=== PATIENT | female | born 1995 | race Caucasian/White ===

== ENCOUNTER 2025-06-05 14:01 | Inpatient (IN) ==
[2025-06-05] MEDS: SODIUM CHLORIDE 0.9% 1,000 ML IV STA (14:34)
--- NOTE | 2025-06-05 14:35 | Emergency Department Note ---
Impression & Plan Tachycardia, Elevated troponin, Hypokalemia, Hyperglycemia ED Provider Note NAME: KYLE DE LA CRUZ AGE: 29 SEX: F : 1995 ARRIVES VIA: Ambulance INFORMANT: Patient ED PROVIDER(S): Santi White MD CHIEF COMPLAINT: Palpitations, referred. 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 Patient denies having any episodes of similar symptoms in the past. She reports over the past several weeks she has had moments where she would have a mild sharp pain in the center of her chest and lower chest but would last 10 seconds at most. She denies any chest pain at this time. She denies any recent illness including denies fevers, chills, cough, congestion, GI or symptoms. She denies any family history of sudden , DVT/PE. On evaluation the patient no acute distress, afebrile with hide in the 120s-130s and a regular rhythm and vital signs otherwise stable. She appears clinically dry. She exhibits no neurologic deficits. EKG without overt acute ischemia. CXR negative for acute cardiopulmonary process per my personal preliminary review/interpretation. WBC 11.4 K with neutrophilia but no left shift, nonspecific. H/H and platelets within normal limits. Chemistry without metabolic acidosis. BUN/creatinine 24 consistent with patient's clinically dry appearance. Potassium 3.1 and magnesium 1.9 with repletion provided. Glucose was 242 however hemoglobin A1c is within normal limits. LFTs are unremarkable. Initial high-sensitivity troponin 42 with delta 2-hour repeat rising to 147. Lyme screen was negative. UA without evidence of infection. CTA of the chest was performed was negative for PE or acute aortic pathology. No acute cardiopulmonary process otherwise. No pericardial effusion by CT. Limited bedside cardiac ultrasound also was negative for pericardial effusion. Upon evaluation patient did report feeling some improvement after heart Federation electrolyte repletion though she did acknowledge that when she paid attention she felt as if her heart rate increased. Findings were reviewed and the patient does agree with plan for admission for further management. Unclear definitive etiology to patient's symptoms and elevated troponin at this time though certainly may be possible that the patient had experienced a more rapid and persistent SVT prior to arriving to the emergency department. Case was discussed with JAMIL Johnston hospitalist, who will evaluate the patient for admission. Further management per admitting team. Triage Nursing notes reviewed and agree them. Prior/external medical records reviewed Vital Signs: reviewed Differential diagnosis: Premature contractions, electrolyte abnormality, cardiac dysrhythmia, thyroid dysfunction, pulmonary embolism, infection, gastrointestinal, as well as other pathologies. ER treatment provided: See below. Diagnostics interpreted by me: ECG: Sinus tachycardia, 126 bpm, no ectopy, incomplete right bundle branch block, no overt ST elevation or depression, QTc 437, QRS 96. No Brugada, Cardiac Monitoring: An order for continuous cardiac monitoring was placed and demonstrated sinus tachycardia, 126 bpm, no ectopy. Laboratory studies: See below Imaging studies: See below Consultation(s): JAMIL Johnston hospitalist. HPI: Per MDM. ROS: See above HPI for pertinent positives & negatives. A total of 10 systems reviewed and were otherwise negative. VITALS:See Below PHYSICAL EXAMINATION: GENERAL: Awake, alert, in no distress HENT: Normocephalic, atraumatic. Oropharynx with dry mucous membranes and otherwise unremarkable. EYES: Normal conjunctiva. Sclera non-icteric. NECK: Supple. No nuchal rigidity. FROM. No JVD. RESPIRATORY: Clear to auscultation. CARDIAC: Tachycardic rate, normal rhythm. Extremities warm and well perfused. Pulses equal. ABDOMEN: Soft, non-distended. No tenderness to palpation. No rebound or guarding. No masses. MUSCULOSKELETAL: Chest examination reveals no tenderness. The back is symmetrical on inspection without obvious abnormality. There is no CVA tenderness to palpation. No joint edema. LOWER EXTREMITIES: Calves are equal size bilaterally and non-tender. No edema. No discoloration. NEURO: Normal sensorium. No sensory or motor deficits noted. SKIN: No rash or jaundice noted. Santi White MD Past Med/Surg History Problem List (Updated 06/06/25 @ 05:05 by Santi White MD) Hyperglycemia (Acute) Hypophosphatemia Hypokalemia (Acute) Elevated troponin (Acute) Tachycardia (Acute) Social History Smoking Status: Never smoker Hx Alcohol Use: No Hx Substance Use: No Preferred Language: Wolof Beliefs That Will Affect Care: None Current Living Situation: Alone Feels Safe at Home: Yes Assistive Devices: None Allergies Allergies Allergy/AdvReac Type Severity Reaction Status Date / Time No Known Allergies Allergy Unverified 06/05/25 23:19 Home Meds Home Medications Medication Instructions Recorded Confirmed Women's Multivitamin 1 tab PO DAILY 06/05/25 06/05/25 norethindrone 1 mg-ethinyl 1 tab PO DAILY 06/05/25 06/05/25 estradiol 10 mcg (24)-iron 10 mcg(2) tablet (Lo Loestrin Fe) Results & Data (ED) Vital Signs Vital Signs - 24 hr 06/05/25 13:55 06/05/25 14:20 06/05/25 14:21 Temperature 36.8 C Temperature Source Oral Pulse Rate 128 H 133 H Pulse Rate from SpO2 Sensor Pulse Rhythm Regular Pulse Strength Normal Respiratory Rate 22 Respiratory Effort / Characteristics Non-Labored Spontaneous Respiratory Depth Normal Blood Pressure 128/79 Blood Pressure Mean 95 Blood Pressure Position Semi-fowlers Pulse Oximetry 100 100 Oxygen Delivery Method Room Air Room Air Sepsis Recent Fever Within 48 Hours No Sepsis New/Unexplained Change in Mental Status No Sepsis Action Taken by Nursing Physician Notified 06/05/25 14:21 06/05/25 14:24 06/05/25 14:27 Temperature Temperature Source Pulse Rate 129 H 126 H 126 H Pulse Rate from SpO2 Sensor 123 H 127 H Pulse Rhythm Pulse Strength Respiratory Rate 22 18 28 H Respiratory Effort / Characteristics Respiratory Depth Blood Pressure Blood Pressure Mean Blood Pressure Position Pulse Oximetry 100 100 100 Oxygen Delivery Method Room Air Sepsis Recent Fever Within 48 Hours Sepsis New/Unexplained Change in Mental Status Sepsis Action Taken by Nursing 06/05/25 14:30 06/05/25 14:57 06/05/25 15:00 Temperature Temperature Source Pulse Rate 124 H 124 H Pulse Rate from SpO2 Sensor 125 H 126 H Pulse Rhythm Pulse Strength Respiratory Rate 15 20 Respiratory Effort / Characteristics Respiratory Depth Blood Pressure 139/83 139/83 Blood Pressure Mean 94 101 Blood Pressure Position Pulse Oximetry 100 100 Oxygen Delivery Method Sepsis Recent Fever Within 48 Hours Sepsis New/Unexplained Change in Mental Status Sepsis Action Taken by Nursing 06/05/25 15:00 06/05/25 15:00 06/05/25 15:12 Temperature Temperature Source Pulse Rate 122 H Pulse Rate from SpO2 Sensor 122 H Pulse Rhythm Pulse Strength Respiratory Rate 15 Respiratory Effort / Characteristics Respiratory Depth Blood Pressure 150/73 H 150/73 H Blood Pressure Mean 101 101 Blood Pressure Position Pulse Oximetry 100 Oxygen Delivery Method Sepsis Recent Fever Within 48 Hours Sepsis New/Unexplained Change in Mental Status Sepsis Action Taken by Nursing 06/05/25 15:21 06/05/25 15:30 06/05/25 15:42 Temperature Temperature Source Pulse Rate 128 H 126 H Pulse Rate from SpO2 Sensor 130 H 125 H Pulse Rhythm Pulse Strength Respiratory Rate 15 22 Respiratory Effort / Characteristics Respiratory Depth Blood Pressure 128/79 Blood Pressure Mean 94 Blood Pressure Position Pulse Oximetry 100 100 Oxygen Delivery Method Sepsis Recent Fever Within 48 Hours Sepsis New/Unexplained Change in Mental Status Sepsis Action Taken by Nursing 06/05/25 15:48 06/05/25 16:00 06/05/25 16:00 Temperature Temperature Source Pulse Rate 125 H Pulse Rate from SpO2 Sensor 123 H Pulse Rhythm Pulse Strength Respiratory Rate 19 Respiratory Effort / Characteristics Respiratory Depth Blood Pressure 135/81 135/81 Blood Pressure Mean 95 95 Blood Pressure Position Pulse Oximetry 100 Oxygen Delivery Method Sepsis Recent Fever Within 48 Hours Sepsis New/Unexplained Change in Mental Status Sepsis Action Taken by Nursing 06/05/25 16:03 06/05/25 16:27 06/05/25 16:51 Temperature Temperature Source Pulse Rate 125 H 119 H 117 H Pulse Rate from SpO2 Sensor 125 H 120 H 116 H Pulse Rhythm Pulse Strength Respiratory Rate 19 21 13 Respiratory Effort / Characteristics Respiratory Depth Blood Pressure Blood Pressure Mean Blood Pressure Position Pulse Oximetry 100 100 100 Oxygen Delivery Method Sepsis Recent Fever Within 48 Hours Sepsis New/Unexplained Change in Mental Status Sepsis Action Taken by Nursing 06/05/25 16:57 06/05/25 17:00 06/05/25 17:00 Temperature Temperature Source Pulse Rate 119 H Pulse Rate from SpO2 Sensor 123 H Pulse Rhythm Pulse Strength Respiratory Rate 20 Respiratory Effort / Characteristics Respiratory Depth Blood Pressure 127/76 127/76 Blood Pressure Mean 91 91 Blood Pressure Position Pulse Oximetry 98 Oxygen Delivery Method Sepsis Recent Fever Within 48 Hours Sepsis New/Unexplained Change in Mental Status Sepsis Action Taken by Nursing 06/05/25 17:30 06/05/25 17:30 06/05/25 17:30 Temperature Temperature Source Pulse Rate Pulse Rate from SpO2 Sensor Pulse Rhythm Pulse Strength Respiratory Rate Respiratory Effort / Characteristics Respiratory Depth Blood Pressure 119/76 119/76 119/76 Blood Pressure Mean 84 84 84 Blood Pressure Position Pulse Oximetry Oxygen Delivery Method Sepsis Recent Fever Within 48 Hours Sepsis New/Unexplained Change in Mental Status Sepsis Action Taken by Nursing 06/05/25 17:30 06/05/25 17:36 06/05/25 17:49 Temperature Temperature Source Pulse Rate 119 H 121 H Pulse Rate from SpO2 Sensor 117 H 121 H Pulse Rhythm Pulse Strength Respiratory Rate 14 19 Respiratory Effort / Characteristics Respiratory Depth Blood Pressure 128/82 Blood Pressure Mean 94 Blood Pressure Position Pulse Oximetry 99 99 Oxygen Delivery Method Sepsis Recent Fever Within 48 Hours Sepsis New/Unexplained Change in Mental Status Sepsis Action Taken by Nursing 06/05/25 17:51 06/05/25 17:54 06/05/25 18:00 Temperature Temperature Source Pulse Rate 117 H 122 H Pulse Rate from SpO2 Sensor 116 H 120 H Pulse Rhythm Pulse Strength Respiratory Rate 16 20 Respiratory Effort / Characteristics Respiratory Depth Blood Pressure 126/76 Blood Pressure Mean 93 Blood Pressure Position Pulse Oximetry 98 99 Oxygen Delivery Method Sepsis Recent Fever Within 48 Hours Sepsis New/Unexplained Change in Mental Status Sepsis Action Taken by Nursing 06/05/25 18:00 06/05/25 18:03 06/05/25 18:15 Temperature Temperature Source Pulse Rate 115 H 116 H Pulse Rate from SpO2 Sensor 115 H 116 H Pulse Rhythm Pulse Strength Respiratory Rate 21 18 Respiratory Effort / Characteristics Respiratory Depth Blood Pressure 126/76 Blood Pressure Mean 93 Blood Pressure Position Pulse Oximetry 99 99 Oxygen Delivery Method Sepsis Recent Fever Within 48 Hours Sepsis New/Unexplained Change in Mental Status Sepsis Action Taken by Nursing 06/05/25 18:29 06/05/25 18:51 06/05/25 19:09 Temperature Temperature Source Pulse Rate 117 H 105 H 103 H Pulse Rate from SpO2 Sensor 104 H 104 H Pulse Rhythm Pulse Strength Respiratory Rate 21 25 H Respiratory Effort / Characteristics Respiratory Depth Blood Pressure Blood Pressure Mean Blood Pressure Position Pulse Oximetry 99 99 Oxygen Delivery Method Sepsis Recent Fever Within 48 Hours Sepsis New/Unexplained Change in Mental Status Sepsis Action Taken by Nursing 06/05/25 19:12 06/05/25 19:21 Temperature Temperature Source Pulse Rate 106 H 109 H Pulse Rate from SpO2 Sensor 109 H 109 H Pulse Rhythm Pulse Strength Respiratory Rate 21 21 Respiratory Effort / Characteristics Respiratory Depth Blood Pressure Blood Pressure Mean Blood Pressure Position Pulse Oximetry 99 98 Oxygen Delivery Method Sepsis Recent Fever Within 48 Hours Sepsis New/Unexplained Change in Mental Status Sepsis Action Taken by Nursing Laboratory Data Attestation: I reviewed the patient's lab results. 06/05/25 14:20 06/05/25 14:20 Lab Results 06/05/25 06/05/25 06/05/25 Range/Units 14:20 14:20 17:08 WBC 11.49 H (4.8-10.8) K/ul RBC 4.28 (4.20-5.40) M/uL Hgb 12.8 (12.0-16.0) g/dl Hct 37.2 (37.0-47.0) % MCV 86.9 (80.0-100.0) fL MCH 29.9 (25.0-34.0) pg MCHC 34.4 (32.0-36.0) g/dL RDW Std Deviation 39.9 (36.4-46.3) fL RDW Coeff of Pavel 12.5 (11.5-14.5) % Plt Count 244 (130-400) K/uL MPV 11.1 (9.4-12.4) fL Immature Gran % (Auto) 0.4 % Neut % (Auto) 79.3 % Lymph % (Auto) 11.8 % [place] % (Auto) 6.2 % Eos % (Auto) 1.9 % Baso % (Auto) 0.4 % Neut # (Auto) 9.10 H (1.40-6.50) K/uL Lymph # (Auto) 1.36 (1.20-3.40) K/uL [place] # (Auto) 0.71 H (0.11-0.59) K/uL Eos # (Auto) 0.22 (0.00-0.50) K/uL Baso # (Auto) 0.05 (0.00-0.20) K/uL Immature Gran # (Auto) 0.05 (0.01-0.20) K/uL PT 10.9 (9.0-12.0) Seconds INR 1.0 (0.9-1.1) D-Dimer 260 (0-500) ug/L FEU Sodium 132 L (136-145) mmol/L Potassium 3.1 L (3.5-5.1) mmol/L Chloride 101 (98-107) mmol/L Carbon Dioxide 22 (21-32) mmol/L Anion Gap 9 (3-11) BUN 19 (6-23) mg/dl Creatinine 0.79 (0.6-1.2) mg/dl Est Cr Clr Drug Dosing 84.6 ml/min eGFR 105.08 BUN/Creatinine Ratio 24.1 H (10-20) Glucose 242 H (70-99(Fasting)) mg/dl Estimat Average Glucose 97 mg/dl Hemoglobin A1c 5.0 (4.5-5.6) % Calcium 8.9 (8.6-10.3) mg/dl Phosphorus 2.3 L (2.5-4.9) mg/dl Magnesium 1.9 (1.7-2.4) mg/dl Total Bilirubin 0.5 (0.2-1.0) mg/dl AST 15 (13-39) U/L ALT 15 (7-52) U/L Alkaline Phosphatase 53 (34-104) U/L Troponin I High Sens 42.4 H 147.8 H* D (0-14) pg/ml Total Protein 7.8 (6.0-8.3) gm/dl Albumin 4.2 (3.4-5.0) gm/dl Globulin 3.6 (2.5-4.0) gm/dl Albumin/Globulin Ratio 1.2 (0.9-2) Lipase 15 (11-82) U/L Procalcitonin < 0.02 Cancelled (0-0.5) ng/ml TSH 1.991 (0.300-4.500) uIu/ml HCG, Qual Negative (Negative) Urine Color Urine Appearance (Clear) Urine pH (4.5-7.5) Ur Specific [place] (1.000-1.030) Urine Protein (Negative) Urine Glucose (UA) (Negative) Urine Ketones (Negative) Urine Blood (Negative) Urine Nitrite (Negative) Urine Bilirubin (Negative) Urine Urobilinogen (Negative) Ur Leukocyte Esterase (Negative) Urine WBC (Auto) (0-5) /hpf Urine RBC (Auto) (0-2) /hpf U Hyaline Cast (Auto) (0-2) /lpf U Epithel Cells (Auto) (0-2) /hpf Urine Bacteria (Auto) (None Seen) Urine Comment Lyme Disease Screen Negative (Negative) 06/05/25 Range/Units 17:45 WBC (4.8-10.8) K/ul RBC (4.20-5.40) M/uL Hgb (12.0-16.0) g/dl Hct (37.0-47.0) % MCV (80.0-100.0) fL MCH (25.0-34.0) pg MCHC (32.0-36.0) g/dL RDW Std Deviation (36.4-46.3) fL RDW Coeff of Pavel (11.5-14.5) % Plt Count (130-400) K/uL MPV (9.4-12.4) fL Immature Gran % (Auto) % Neut % (Auto) % Lymph % (Auto) % [place] % (Auto) % Eos % (Auto) % Baso % (Auto) % Neut # (Auto) (1.40-6.50) K/uL Lymph # (Auto) (1.20-3.40) K/uL [place] # (Auto) (0.11-0.59) K/uL Eos # (Auto) (0.00-0.50) K/uL Baso # (Auto) (0.00-0.20) K/uL Immature Gran # (Auto) (0.01-0.20) K/uL PT (9.0-12.0) Seconds INR (0.9-1.1) D-Dimer (0-500) ug/L FEU Sodium (136-145) mmol/L Potassium (3.5-5.1) mmol/L Chloride (98-107) mmol/L Carbon Dioxide (21-32) mmol/L Anion Gap (3-11) BUN (6-23) mg/dl Creatinine (0.6-1.2) mg/dl Est Cr Clr Drug Dosing ml/min eGFR BUN/Creatinine Ratio (10-20) Glucose (70-99(Fasting)) mg/dl Estimat Average Glucose mg/dl Hemoglobin A1c (4.5-5.6) % Calcium (8.6-10.3) mg/dl Phosphorus (2.5-4.9) mg/dl Magnesium (1.7-2.4) mg/dl Total Bilirubin (0.2-1.0) mg/dl AST (13-39) U/L ALT (7-52) U/L Alkaline Phosphatase (34-104) U/L Troponin I High Sens (0-14) pg/ml Total Protein (6.0-8.3) gm/dl Albumin (3.4-5.0) gm/dl Globulin (2.5-4.0) gm/dl Albumin/Globulin Ratio (0.9-2) Lipase (11-82) U/L Procalcitonin (0-0.5) ng/ml TSH (0.300-4.500) uIu/ml HCG, Qual (Negative) Urine Color Colorless Urine Appearance Clear (Clear) Urine pH 6.0 (4.5-7.5) Ur Specific [place] <= 1.005 (1.000-1.030) Urine Protein Negative (Negative) Urine Glucose (UA) Negative (Negative) Urine Ketones Negative (Negative) Urine Blood Trace-intact H (Negative) Urine Nitrite Negative (Negative) Urine Bilirubin Negative (Negative) Urine Urobilinogen Negative (Negative) Ur Leukocyte Esterase Negative (Negative) Urine WBC (Auto) 0-5 (0-5) /hpf Urine RBC (Auto) 0-2 (0-2) /hpf U Hyaline Cast (Auto) 0-2 (0-2) /lpf U Epithel Cells (Auto) 0-2 (0-2) /hpf Urine Bacteria (Auto) None Seen (None Seen) Urine Comment Lyme Disease Screen (Negative) Administered Medications Enoxaparin Sodium (Enoxaparin Inj 40 Mg/0.4 Ml Syr) 40 mg SQ HS HOWIE Stop: 07/05/25 22:59 Last Admin: 06/05/25 23:59 Dose: Not Given Documented By: ZION Hydroxyzine HCl (Hydroxyzine Hcl 25 Mg Tab) 25 mg PO Q8H PRN PRN Reason: Anxiety Stop: 07/05/25 19:56 Last Admin: 06/05/25 23:47 Dose: 25 mg Documented By: ZION Melatonin (Melatonin 3 Mg Tab) 3 mg PO HS PRN PRN Reason: Sleep Stop: 07/05/25 22:46 Last Admin: 06/05/25 23:47 Dose: 3 mg Documented By: ZION Discontinued Medications Sodium Chloride (Nss) 1,000 mls @ 999 mls/hr IV .Q1H1M STA Stop: 06/05/25 15:21 Last Infusion: 06/05/25 18:03 Dose: Infused Documented By: Admin: 06/05/25 14:34 Dose: 999 mls/hr Documented By: TDM Sodium Chloride (Nss) 1,000 mls @ 999 mls/hr IV .Q1H1M ONE Stop: 06/05/25 15:21 Last Admin: 06/05/25 14:42 Dose: Not Given Documented By: TDM Magnesium Sulfate/Dextrose (Magnesium Sulfate / D5w) 1 gm in 100 mls @ 100 mls/hr IV NOW STA Stop: 06/05/25 16:28 Last Infusion: 06/05/25 18:03 Dose: Infused Documented By: Admin: 06/05/25 15:43 Dose: 100 mls/hr Documented By: JACINTA Potassium Chloride (K Ariel / Wtr) 10 meq in 100 mls @ 100 mls/hr IV ONE ONE Stop: 06/05/25 16:27 Last Infusion: 06/05/25 18:03 Dose: Infused Documented By: Admin: 06/05/25 15:44 Dose: 100 mls/hr Documented By: JACINTA Sodium Chloride (Nss) 1,000 mls @ 999 mls/hr IV .Q1H1M ONE Stop: 06/05/25 18:40 Last Infusion: 06/05/25 19:51 Dose: Infused Documented By: Admin: 06/05/25 17:43 Dose: 999 mls/hr Documented By: JACINTA Potassium Phosphate 6 mmol/ (Sodium Chloride) 102 mls @ 88 mls/hr IV ONE ONE Stop: 06/05/25 21:24 Last Infusion: 06/05/25 23:21 Dose: Infused Documented By: [facility] Admin: 06/05/25 22:11 Dose: 88 mls/hr Documented By: NJIan Ioversol (Optiray 320 125ml) 118 ml IV ONCE ONE Stop: 06/05/25 16:37 Last Admin: 06/05/25 16:36 Dose: 118 ml Documented By: Imaging Data Radiologist's Impression: Chest X-Ray 06/05/25 14:21 XR chest 1V portable CLINICAL HISTORY: Chest pain, nonspecific COMPARISON STUDY: None FINDINGS: Heart size and pulmonary vasculature are normal. Lungs are mildly hyperexpanded. No consolidation or pleural effusion. No pneumothorax. IMPRESSION: No acute findings. ACT 112: Negative or not required by law. Electronically signed by: Jack Howard M.D. 06/05/2025 2:52 PM Chest X-Ray 06/05/25 14:21 XR chest 1V portable CLINICAL HISTORY: Chest pain, nonspecific COMPARISON STUDY: None FINDINGS: Heart size and pulmonary vasculature are normal. Lungs are mildly hyperexpanded. No consolidation or pleural effusion. No pneumothorax. IMPRESSION: No acute findings. ACT 112: Negative or not required by law. Electronically signed by: Jack Howard M.D. 06/05/2025 2:52 PM Chest CTA 06/05/25 15:28 CT pulmonary angiogram with IV contrast History: Chest pain COMPARISON: None TECHNIQUE: CT angiography of the chest was performed without IV contrast followed by IV contrast, including 3D post processing CTA image reconstruction. Dose reduction techniques were achieved by using automatic exposure control and/or adjustment of mA and/or kV according to patient size and/or use of iterative reconstruction technique. FINDINGS: Diagnostic quality: Adequate There is no evidence for pulmonary embolism. The heart is not enlarged. There is no pericardial effusion. There are no abnormally enlarged hilar or mediastinal lymph nodes. The central tracheobronchial tree is clear. The lungs are clear. There is no pleural effusion. Limited visualized upper abdomen. No destructive osseous changes are seen. IMPRESSION: No evidence for pulmonary embolism. Electronically signed by Chago Li 06-05-2025 4:55 PM Discharge Plan Visit Data Chief Complaint: Arrhythmia/Palpitations Stated Complaint: CARDIAC ASSESMENT ED Provider: Santi White Discharge Problem: Tachycardia, Elevated troponin, Hypokalemia, Hyperglycemia Patient Disposition: Admitted As Inpatient Condition: Fair Discharge Instructions Interventions: ED Discharge Assessment Last Done: 06/05/25 22:25
[2025-06-05] MEDS: SODIUM CHLORIDE 0.9% 1,000 ML IV ONE ×2 (14:42→17:43)
[2025-06-05 14:48] LABS: Hematocrit (blood only) 37.2 % (37.0-47.0); Hemoglobin 12.8 g/dl (12.0-16.0); Immature Granulocytes # (auto) 0.05 K/uL (0.01-0.20); Immature Granulocytes % (auto) 0.4 %; Mean Corpuscular Hemoglobin 29.9 pg (25.0-34.0); Mean Corpuscular Volume 86.9 fL (80.0-100.0); Platelet Count 244 K/uL (130-400); RDW Standard Deviation 39.9 fL (36.4-46.3); Red Blood Count 4.28 M/uL (4.20-5.40); White Blood Count 11.49 K/ul (4.8-10.8)
--- NOTE | 2025-06-05 14:54 | XRay Report ---
XR chest 1V portable CLINICAL HISTORY: Chest pain, nonspecific COMPARISON STUDY: None FINDINGS: Heart size and pulmonary vasculature are normal. Lungs are mildly hyperexpanded. No consoli dation or pleural effusion. No pneumothorax. IMPRESSION: No acute findings. ACT 112: Negative or not required by law. Electronically signed by: Jack Howard M.D. 06/05/2025 2:52 PM
[2025-06-05 15:07] LABS: Alanine Aminotransferase 15.0 U/L (7-52); Albumin Globulin Ratio 1.2 (0.9-2); Alkaline Phosphatase 53.0 U/L (34-104); Anion Gap 9.0 (3-11); Bilirubin,Total 0.5 mg/dl (0.2-1.0); Blood Urea Nitrogen 19.0 mg/dl (6-23); Calcium 8.9 mg/dl (8.6-10.3); Carbon Dioxide 22.0 mmol/L (21-32); Chloride 101.0 mmol/L (98-107); Creatinine Clr Calc Pharmacy 84.6 ml/min; Globulin 3.6 gm/dl (2.5-4.0); Glucose 242.0 mg/dl (70-99(Fasting)); Lipase 15.0 U/L (11-82); Magnesium 1.9 mg/dl (1.7-2.4); Potassium 3.1 mmol/L (3.5-5.1); Sodium 132.0 mmol/L (136-145); Total Protein 7.8 gm/dl (6.0-8.3)
[2025-06-05 15:11] LABS: Pregnancy Test, Serum Negative (Negative)
[2025-06-05 15:22] LABS: Thyroid Stimulating Hormone 1.991 uIu/ml (0.300-4.500)
[2025-06-05 15:36] LABS: INR 1.0 (0.9-1.1); Prothrombin Time 10.9 Seconds (9.0-12.0)
[2025-06-05] MEDS: MAGNESIUM SULFATE / D5W 1 GM/100 ML BAG IV STA (15:43)
[2025-06-05] MEDS: POTASSIUM CHLORIDE / WTR 10 MEQ/100 ML PLCT IV ONE (15:44)
[2025-06-05] MEDS: OPTIRAY 320 125ml IV ONE (16:36)
--- NOTE | 2025-06-05 16:55 | CT Scan Report ---
CT pulmonary angiogram with IV contrast History: Chest pain COMPARISON: None TECHNIQUE: CT angiography of the chest was performed without IV contrast followed by IV contrast, including 3D post processing CTA image reconstruction. Dose reduction techniques were achieved by using automatic exposure control and/or adjustment of mA and/or kV according to patient size and/or use of iterative reconstruction technique. FINDINGS: Diagnostic quality: Adequate There is no evidence for pulmonary embolism. The heart is not enlarged. There is no pericardial effusion. There are no abnormally enlarged hilar or mediastinal lymph nodes. The central tracheobronchial tree is clear. The lungs are clear. There is no pleural effusion. Limited visualized upper abdomen. No destructive osseous changes are seen. IMPRESSION: No evidence for pulmonary embolism. Electronically signed by Chago Li 06-05-2025 4:55 PM
[2025-06-05 18:06] LABS: Appearance Urine Clear (Clear); Glucose Urine UA Negative (Negative)
[2025-06-05 18:11] LABS: Bacteria Urine Automated None Seen (None Seen); Cast Urine Automated 0-2 /lpf (0-2); Epithelial Cell Urine Auto 0-2 /hpf (0-2); RBC Urine Automated 0-2 /hpf (0-2); WBC Urine Automated 0-5 /hpf (0-5)
[2025-06-05 19:03] LABS: Hemoglobin A1C 5.0 % (4.5-5.6)
[2025-06-05 19:20] LABS: Procalcitonin < 0.02 ng/ml (0-0.5)
--- NOTE | 2025-06-05 19:31 | History & Physical Report ---
Date of Service June 05, 2025 Assessment & Plan (1) Tachycardia: (2) Elevated troponin: (3) Hypokalemia: (4) Hypophosphatemia: (5) Hyperglycemia: Plan 29-year-old female no significant PMHx presenting for onset of feeling her heart racing and palpitations the day of arrival. Workup in ED concerning for few electrolyte abnormalities as well as elevated troponin with significant rise on repeat. Imaging studies (CXR and chest CTA) negative. EKG without ischemic changes. Admission required for elevated troponin. #Tachycardia/Elevated troponin Presenting with onset of her "heart racing" at ~ 130 bpm and palpitations. On control. No recent illness. Unclear etiology at this time; not anemic, no clear infection at admission, no dehydration, denies illicit drugs, negative PE. Will complete cardiac workup. Does appear somewhat anxious during visit and heart rate increased when medical personnel initially entered the room. - CBC leukocytosis 11.49, stable H&H; D-dimer 260 - CBC am - Troponin 42.4, 147.8 on repeat - trend - Lyme negative - EKG read as sinus tachycardia with occasional ventricular paced complexes at 74 bpm -- pending repeat - CXR WNL; chest CTA negative for PE - Echo pending - Hydroxyzine q8h prn for anxiety - Consider cardiology consult #Hypokalemia Asx; Received KCl 10 mEq IV and Mag sulfate 1g IV in ED. - K 3.1, Mg 1.9 - BMP am - Receiving phosphorus replacement (KPO 6 mmol) - EKG sinus tachycardia #Hypophosphatemia Asymptomatic currently - Phosphate 2.3 - repeat am - Potassium phosphate 6 mmol x 1 #Hyponatremia In setting of hyperglycemia; Received 2L NSS in ED. - Na 132, glucose 242; corrected 135 - BMP am #Hyperglycemia No increased thirst/hunger, no h/o DM. - Glucose 242 - A1c 5% - Follow up outpatient if recurrent elevated readings Dispo: Obs, med/tele VTE Prophylaxis: Lovenox This document was dictated utilizing [employer]. Please excuse any grammatical errors that may be secondary to use of this software. Admission and Anticipated Discharge Date Admission Date: 06/05/2025 History of Present Illness Chief Complaint: Heart racing Primary Care Provider: NO PCP 29-year-old female no significant PMHx presenting for onset of feeling her heart racing and palpitations the day of arrival. Patient states that around noon on the day of arrival she was at the library doing some work at [facility] when she had a sudden onset of a racing heartbeat. She tried to sit down and rest and it tends to alleviate the symptoms but this did not help, she decided to go to the [facility] to be evaluated. At that time he obtained an EKG and took her vitals where she notes that her heart rate was 140 bpm. She denies any nausea, lightheadedness, SOB, or chest pain at the time of this occurring. She has never had this happen before. She does admit to prior history of a "pinching" sensation in her chest that would primarily come and go at times over the past few months, but she did not experience this the day of arrival. She is not having any symptoms at present. She admits to drinking around a cup and a half of coffee with milk the morning of arrival which is her normal amount of caffeine intake. She is on control pills, she does not smoke. Denies illicit drug use. No known ticks. No history of DVT/PE. No prior cardiac history. She has not been sick recently, specifically denying fever/chills, URI symptoms, cough (aside from occasional throat clearing in the morning), or recent sick contacts. She has never had this happen before. ED evaluation reveals CBC with leukocytosis 11.49, stable H&H; PT/INR WNL; D-dimer 260; CMP sodium 132, potassium 3.1, BUN/creatinine ratio 24.1, glucose 242; phosphorus 2.3; TSH 1.991; troponin 42.4, 147.8 on repeat; procalcitonin pending; UA negative for infection; lyme screen pending; CXR no acute findings; chest CTA no PE; EKG read as sinus tachycardia with occasional ventricular paced complexes at 127 bpm.; Provided with 2L NSS, mag sulfate 1 g IV, and potassium 20 mEq IV in ED. Please see Dr. Dunn's attestation for adjustments/additions to treatment plan. Home Medications Medication Instructions Recorded Confirmed Type Women's Multivitamin 1 tab PO DAILY 06/05/25 06/05/25 History norethindrone 1 mg-ethinyl 1 tab PO DAILY 06/05/25 06/05/25 History estradiol 10 mcg (24)-iron 10 mcg(2) tablet (Lo Loestrin Fe) Past Med/Surg History Problem List (Updated 06/05/25 @ 20:06 by Ciaran Brambila PA-C) Hyperglycemia Hypophosphatemia Hypokalemia Elevated troponin Tachycardia Social History Smoking Status: Never smoker Preferred Language: Kiswahili Feels Safe at Home: Yes Review of Systems Review of Systems: All systems reviewed & are unremarkable except as noted in Subjective Physical Exam Physical Exam: General: No acute distress Skin: Warm and dry Head: Normocephalic, atraumatic Eyes: PERRL, conjunctivae clear, sclera non-icteric ENT: External ear and ear canal without swelling; nose atraumatic; good dentition, tongue normal appearance, pharynx normal Neck: Supple, no LAD Cardio: Tachycardic in the low 100s, regular rhythm, no M/G/R, S1 and S2 normal Resp: No respiratory distress, Lungs CTA in all lobes bilaterally, no wheezes, rales, or rhonchi Abdomen: Soft, symmetric, nontender; No masses or hepatosplenomegaly; Bowel sounds normoactive MSK: No deformities; pulses palpable and equal; no edema. Neuro: Awake, alert; Sensation intact bilaterally; CN grossly intact Psych: Appropriate mood and affect; good judgement and insight. Mother present in room at time of visit. Results & Data Results & Data Vital Signs (Past 12 Hours) Vital Signs Temp Pulse Resp BP Pulse Ox O2 Del Method 06/05/25 18:29 117 H 06/05/25 17:30 119 H 14 99 06/05/25 17:30 119/76 06/05/25 17:30 119/76 06/05/25 17:30 119/76 06/05/25 17:00 127/76 06/05/25 17:00 127/76 06/05/25 16:57 119 H 20 98 06/05/25 16:51 117 H 13 100 06/05/25 16:27 119 H 21 100 06/05/25 16:03 125 H 19 100 06/05/25 16:00 135/81 06/05/25 16:00 135/81 06/05/25 15:48 125 H 19 100 06/05/25 15:42 126 H 22 100 06/05/25 15:30 128/79 06/05/25 15:21 128 H 15 100 06/05/25 15:12 122 H 15 100 06/05/25 15:00 150/73 H 06/05/25 15:00 150/73 H 06/05/25 15:00 124 H 20 139/83 100 06/05/25 14:57 124 H 15 100 06/05/25 14:30 139/83 06/05/25 14:27 126 H 28 H 100 06/05/25 14:24 126 H 18 100 06/05/25 14:21 129 H 22 100 Room Air 06/05/25 14:21 100 Room Air 06/05/25 14:20 133 H 06/05/25 13:55 36.8 C 128 H 22 128/79 100 Room Air Laboratory Results 06/05/25 06/05/25 06/05/25 17:45 17:08 14:20 WBC RBC Hgb Hct MCV MCH MCHC RDW Std Deviation RDW Coeff of Pavel Plt Count MPV Immature Gran % (Auto) Neut % (Auto) Lymph % (Auto) [place] % (Auto) Eos % (Auto) Baso % (Auto) Neut # (Auto) Lymph # (Auto) [place] # (Auto) Eos # (Auto) Baso # (Auto) Immature Gran # (Auto) PT INR D-Dimer Sodium Potassium Chloride Carbon Dioxide Anion Gap BUN Creatinine Est Cr Clr Drug Dosing eGFR BUN/Creatinine Ratio Glucose Estimat Average Glucose Hemoglobin A1c Calcium Phosphorus Magnesium Total Bilirubin AST ALT Alkaline Phosphatase Troponin I High Sens 147.8 H* D Total Protein Albumin Globulin Albumin/Globulin Ratio Lipase Procalcitonin Cancelled TSH 1.991 HCG, Qual Negative Urine Color Colorless Urine Appearance Clear Urine pH 6.0 Ur Specific [place] <= 1.005 Urine Protein Negative Urine Glucose (UA) Negative Urine Ketones Negative Urine Blood Trace-intact H Urine Nitrite Negative Urine Bilirubin Negative Urine Urobilinogen Negative Ur Leukocyte Esterase Negative Urine WBC (Auto) 0-5 Urine RBC (Auto) 0-2 U Hyaline Cast (Auto) 0-2 U Epithel Cells (Auto) 0-2 Urine Bacteria (Auto) None Seen Urine Comment 06/05/25 14:20 WBC 11.49 H RBC 4.28 Hgb 12.8 Hct 37.2 MCV 86.9 MCH 29.9 MCHC 34.4 RDW Std Deviation 39.9 RDW Coeff of Pavel 12.5 Plt Count 244 MPV 11.1 Immature Gran % (Auto) 0.4 Neut % (Auto) 79.3 Lymph % (Auto) 11.8 Raw[place] % (Auto) 6.2 Eos % (Auto) 1.9 Baso % (Auto) 0.4 Neut # (Auto) 9.10 H Lymph # (Auto) 1.36 [place]ins # (Auto) 0.71 H Eos # (Auto) 0.22 Baso # (Auto) 0.05 Immature Gran # (Auto) 0.05 PT 10.9 INR 1.0 D-Dimer 260 Sodium 132 L Potassium 3.1 L Chloride 101 Carbon Dioxide 22 Anion Gap 9 BUN 19 Creatinine 0.79 Est Cr Clr Drug Dosing 84.6 eGFR 105.08 BUN/Creatinine Ratio 24.1 H Glucose 242 H Estimat Average Glucose 97 Hemoglobin A1c 5.0 Calcium 8.9 Phosphorus 2.3 L Magnesium 1.9 Total Bilirubin 0.5 AST 15 ALT 15 Alkaline Phosphatase 53 Troponin I High Sens 42.4 H Total Protein 7.8 Albumin 4.2 Globulin 3.6 Albumin/Globulin Ratio 1.2 Lipase 15 Procalcitonin < 0.02 TSH HCG, Qual Urine Color Urine Appearance Urine pH Ur Specific [place] Urine Protein Urine Glucose (UA) Urine Ketones Urine Blood Urine Nitrite Urine Bilirubin Urine Urobilinogen Ur Leukocyte Esterase Urine WBC (Auto) Urine RBC (Auto) U Hyaline Cast (Auto) U Epithel Cells (Auto) Urine Bacteria (Auto) Urine Comment Diagnostic Findings Chest X-Ray 06/05/25 14:21 XR chest 1V portable CLINICAL HISTORY: Chest pain, nonspecific COMPARISON STUDY: None FINDINGS: Heart size and pulmonary vasculature are normal. Lungs are mildly hyperexpanded. No consolidation or pleural effusion. No pneumothorax. IMPRESSION: No acute findings. ACT 112: Negative or not required by law. Electronically signed by: Jack Howard M.D. 06/05/2025 2:52 PM Chest CTA 06/05/25 15:28 CT pulmonary angiogram with IV contrast History: Chest pain COMPARISON: None TECHNIQUE: CT angiography of the chest was performed without IV contrast followed by IV contrast, including 3D post processing CTA image reconstruction. Dose reduction techniques were achieved by using automatic exposure control and/or adjustment of mA and/or kV according to patient size and/or use of iterative reconstruction technique. FINDINGS: Diagnostic quality: Adequate There is no evidence for pulmonary embolism. The heart is not enlarged. There is no pericardial effusion. There are no abnormally enlarged hilar or mediastinal lymph nodes. The central tracheobronchial tree is clear. The lungs are clear. There is no pleural effusion. Limited visualized upper abdomen. No destructive osseous changes are seen. IMPRESSION: No evidence for pulmonary embolism. Electronically signed by Chago Li 06-05-2025 4:55 PM Medications Administered 2L NSS KCl 20 mEq IV Magnesium sulfate 1 g IV ECG Additional Comments: Read as: Sinus tachycardia with occasional ventricular paced complexes 74 bpm, OH 142, QRS 72, QT/QTc 310/445, PRT 4//-16 Code Status & VTE Plan Code Status Full Supervising Physician Co-Signing Physician Notes Patient seen and examined, chart reviewed, case discussed with ITZEL Brambila And I agree with the assessment and plan as documented above. In brief, patient is a 29-year-old female no significant past medical history presenting with acute onset of palpitations. Patient with no personal or family history of cardiac disease. Denies increasing caffeine use, stimulant use, pain, dehydration, recent illness or recent vaccination. She does admit to some low-level anxiety ongoing, specifically with starting a new semester. patient has been in sinus tachycardia. On physical exam she is resting comfortably, anxious in appearance, no acute distress Skinwarm, dry, intact with no rashes or lesions HEENTmoist mucous membranes, neck supple Heart+ S1, S2, regular, tachycardic, no murmur/rub/gallops, normal PMI LungsCTA with no rales/rhonchi/wheezes Abdomensoft, nontender, nondistended Extremitieswarm, well-perfused, no clubbing, edema, cyanosis Labs and images reviewed Significant for electrolyte derangements: Sodium = 132, potassium = 3.1, phosphorus low at 2.3 Patient with neutrophil predominant leukocytosis with WBC = 11.49 Troponin = 42.4--> 147.8--> pending CTA negative for PE or other pulmonary abnormalities EKG was sinus tachycardia, OH = 142, QRS = 92, QTc = 445 Assessment/[id number] female with no medical history presenting with acute onset palpitations. Found to be in sinus tachycardia with heart rates initially 130s. Has improved now after IV fluids, presently 109 bpm. Multiple electrolyte derangements noted including low sodium, low potassium, low phosphorus Troponin elevation as above. No acute ischemic changes present on EKG #Consider possible myocarditis given elevated white blood cell count Admit to medical telemetry Continue to trend troponin Check 2D echo Continued electrolyte repletion Remainder as above PG Care Time/CCT Total # of Minutes Spent Total Time Spent with Patient: Total time spent is greater than 50% in coordination of care (as documented) at patient's floor/unit and/or counseling patient: Coding Level of Care Code 47688 INT INP/OBS CARE 3/75MIN Diagnoses Tachycardia R00.0 Elevated troponin R79.89 Hypokalemia E87.6 Hypophosphatemia E83.39 Hyperglycemia R73.9
[2025-06-05 19:46] LABS: Lyme Screen Rflx Confirmation Negative (Negative)
[2025-06-05] MEDS ORDERED: POTASSIUM PHOS 3 MMOL/1 ML INFUSION IV STA (20:03)
[2025-06-05] MEDS: POTASSIUM PHOSPHATE 6 MMOL in SODIUM CHLORIDE 0.9% 100 ML IV ONE (22:11)
[2025-06-05] MEDS ORDERED: POLYETHYLENE (MIRALAX) 17 GM PACK PO PRN (22:47)
[2025-06-05] MEDS ORDERED: MAGNESIUM HYDROXIDE SUSP 30 ML UDC PO PRN (22:47)
[2025-06-05] MEDS ORDERED: ONDANSETRON INJ 2 MG/ML 2 ML VIAL IV PRN (22:47)
[2025-06-05] MEDS: MELATONIN 3 MG TAB PO PRN (23:47)
[2025-06-05] MEDS: ENOXAPARIN INJ 40 MG/0.4 ML SYR SQ SCH (23:59)
[2025-06-06 00:02] LABS: Amphetamines+Metham, Urine Neg (Neg); MDMA (Ecstacy), Urine Neg (Neg); Marijuana, Urine Neg (Neg)
[2025-06-06 06:11] LABS: Hematocrit (blood only) 34.8 % (37.0-47.0); Hemoglobin 11.9 g/dl (12.0-16.0); Mean Corpuscular Hemoglobin 30.0 pg (25.0-34.0); Mean Corpuscular Volume 87.7 fL (80.0-100.0); Platelet Count 218 K/uL (130-400); RDW Standard Deviation 40.5 fL (36.4-46.3); Red Blood Count 3.97 M/uL (4.20-5.40); White Blood Count 8.98 K/ul (4.8-10.8)
[2025-06-06 06:51] LABS: Anion Gap 5.0 (3-11); Blood Urea Nitrogen 7.0 mg/dl (6-23); Calcium 8.5 mg/dl (8.6-10.3); Carbon Dioxide 26.0 mmol/L (21-32); Chloride 110.0 mmol/L (98-107); Creatinine Clr Calc Pharmacy 104.4 ml/min; Glucose 84.0 mg/dl (70-99(Fasting)); Potassium 3.8 mmol/L (3.5-5.1); Sodium 141.0 mmol/L (136-145)
[2025-06-06 12:00] VITALS: O2SAT 99
[2025-06-06 15:16] VITALS: BP 119/76; PULSE 96; RESP 18; TEMP 98.1
[2025-06-06] MEDS: ACETAMINOPHEN 325 MG TAB PO PRN (15:24)
--- NOTE | 2025-06-06 15:41 | XCELERA ---
[id number]
--- NOTE | 2025-06-06 18:49 | Discharge Summary ---
Discharge Summary Date of Service June 06, 2025 Principal Dx & Hospital Course #1 = Principal Diagnosis (1) Tachycardia: (2) Elevated troponin: (3) Hypokalemia: (4) Hypophosphatemia: (5) Hyperglycemia: Plan 29-year-old female no significant PMHx presenting for onset of feeling her heart racing and palpitations the day of arrival. Workup in ED concerning for few electrolyte abnormalities as well as elevated HS-troponin. Imaging studies (CXR and chest CTA) negative. EKG without ischemic changes. Tele overnight was only sinus rhythm. Mildly elevated HS-troponin - TTE was normal. Possibly she had a PSVT prior to medics arriving vs all sinus tachycardia. Probably myocardial demand ischemia from tachycardia, dehydration. No chest pain or fevers to suggest myocarditis. She is low risk for ACS based on above data, age, lack of any risk factors or chest pain. PE was effectively ruled out by CTPA and lack of chest pain and hypoxia. Cardiomyopathy ruled out by Echo. Sinus tachycardia - improved overnight after IV fluids. Probably had some dehydration and electrolyte depletion from low oral intake recently. Appeared very anxious when I came around to see her. TSH was wnl and Echo was normal. Advised avoiding stimulants (excessive caffeine, ADD meds. Utox was negative), and good oral hydration. Hypokalemia / hypophosphatemia / hyponatremia - treated with IV fluids and electrolytes and resolved Hyperglycemia - A1c was normal, fasting BG was 84. Not diabetic. I am not sure what triggered this, however, she is safe to return home. Advised follow up with [facility]. Can make referral for ambulatory monitor worker if recurrent symptoms. Admission HPI Per Admitting Provider 29-year-old female no significant PMHx presenting for onset of feeling her heart racing and palpitations the day of arrival. Patient states that around noon on the day of arrival she was at the library doing some work at [facility] when she had a sudden onset of a racing heartbeat. She tried to sit down and rest and it tends to alleviate the symptoms but this did not help, she decided to go to the [facility] to be evaluated. At that time he obtained an EKG and took her vitals where she notes that her heart rate was 140 bpm. She denies any nausea, lightheadedness, SOB, or chest pain at the time of this occurring. She has never had this happen before. She does admit to prior history of a "pinching" sensation in her chest that would primarily come and go at times over the past few months, but she did not experience this the day of arrival. She is not having any symptoms at present. She admits to drinking around a cup and a half of coffee with milk the morning of arrival which is her normal amount of caffeine intake. She is on control pills, she does not smoke. Denies illicit drug use. No known ticks. No history of DVT/PE. No prior cardiac history. She has not been sick recently, specifically denying fever/chills, URI symptoms, cough (aside from occasional throat clearing in the morning), or recent sick contacts. She has never had this happen before. ED evaluation reveals CBC with leukocytosis 11.49, stable H&H; PT/INR WNL; D-dimer 260; CMP sodium 132, potassium 3.1, BUN/creatinine ratio 24.1, glucose 242; phosphorus 2.3; TSH 1.991; troponin 42.4, 147.8 on repeat; procalcitonin pending; UA negative for infection; lyme screen pending; CXR no acute findings; chest CTA no PE; EKG read as sinus tachycardia with occasional ventricular paced complexes at 127 bpm.; Provided with 2L NSS, mag sulfate 1 g IV, and potassium 20 mEq IV in ED. Please see Dr. Dunn's attestation for adjustments/additions to treatment plan. Discharge Plan Discharge Items Patient Disposition: Home - Self-Care Reason For Visit: PALPITATIONS, ELEVATED TROPONIN Discharge Diagnosis: Sinus tachycardia Condition on Discharge: Fair Activity: Resume your previous activity Non-emergency contact: Primary Care Provider Call non-emergency contact if: you have any medication questions and your symptoms worsen Follow-up/Referrals: PCP,NO [Primary Care Provider] - Diet: Regular Addtl Attending Provider Instructions: You were evaluated for fast heart beat, which caused palpitations Its possible you had an episode of PSVT, however this is typically benign and resolves on its own. You've been in a sinus (normal) rhythm since the time the medics showed up. Echo (heart ultrasound) was fortunately normal. You had some mild electrolyte abnormalities and you were dehydrated - this was treated with IV fluids and electrolytes. These can cause sinus tachycardia. Make sure you are eating and drinking properly and stay hydrated. Avoid stimulants like excessive caffeine, ADHD medications etc. Serious causes like a blood clot in the lung or a thyroid disorder were ruled out by testing. Get evaluated at [facility] if you have recurrent symptoms. You could be tested with an ambulatory heart monitor. It was a pleasure taking care of you in the hospital, Sheree Mitchell MD Pending Studies at Discharge: No Stand-Alone Forms: My [facility], Smoking Cessation Medications and DC Order Prescriptions: Continued Lo Loestrin Fe 1 mg-10 mcg (24)/10 mcg (2) tablet 1 tab PO DAILY Women's Multivitamin 1 tab PO DAILY Discharge Orders: Discharge Order (Routine); Ordered 06/06/25 Ordered By: Sheree Mitchell Admission Data Admit Date/Time: 06/05/25 19:45 Attending Provider: Sheree Mitchell Admit Provider: Shani Dunn Primary Care Provider: PCP,NO Other Providers: Shani Dunn Other Interventions: Discharge Summary Assessment (RN) Last Done: 06/06/25 15:52 Hospital Stay Data Consultations 06/05/25 18:29 ED Decision to Admit Stat Diagnostic Imagining Performed 06/05/25 15:28 CT angio chest PE protocol Stat Pending Results Patient Have Any Pending Studies at Discharge: No Discharge Instructions Given to Patient (Per Discharging Provider) You were evaluated for fast heart beat, which caused palpitations Its possible you had an episode of PSVT, however this is typically benign and resolves on its own. You've been in a sinus (normal) rhythm since the time the medics showed up. Echo (heart ultrasound) was fortunately normal. You had some mild electrolyte abnormalities and you were dehydrated - this was treated with IV fluids and electrolytes. These can cause sinus tachycardia. Make sure you are eating and drinking properly and stay hydrated. Avoid stimulants like excessive caffeine, ADHD medications etc. Serious causes like a blood clot in the lung or a thyroid disorder were ruled out by testing. Get evaluated at [facility] if you have recurrent symptoms. You could be tested with an ambulatory heart monitor. It was a pleasure taking care of you in the hospital, Sheree Mitchell MD Total Time Total Time Spent Total Time Spent (In Minutes): I personally spent: 35 minutes today on clinical care activities including: reviewing chart notes and vital signs reviewing labs reviewing studies examining and counseling the patient writing orders writing prescriptions, discharge instructions documentation Coding Level of Care Code 35669 INP/OBS DISCH >30 MIN Diagnoses Tachycardia R00.0 Elevated troponin R79.89 Hypokalemia E87.6 Hypophosphatemia E83.39 Hyperglycemia R73.9
--- NOTE | 2025-06-09 09:40 | Electrocardiogram Report ---
Test Reason : Blood Pressure : */* mmHG Vent. Rate : 126 BPM Atrial Rate : 126 BPM P-R Int : 146 ms QRS Dur : 96 ms QT Int : 302 ms P-R-T Axes : 74 63 61 degrees QTcB Int : 437 ms Sinus tachycardia Incomplete right bundle branch block Cannot rule out Anterior infarct , age undetermined Abnormal ECG When compared with ECG of 05-Jun-2025 14:14, (unconfirmed) No significant change Confirmed by Xavier Gardner ([id number]) on 06/09/2025 9:40:30 AM Referred By: REFERRED SELF Confirmed By: Xavier Gardner
--- NOTE | 2025-06-09 09:43 | Electrocardiogram Report ---
Test Reason : Blood Pressure : */* mmHG Vent. Rate : 124 BPM Atrial Rate : 124 BPM P-R Int : 142 ms QRS Dur : 92 ms QT Int : 310 ms P-R-T Axes : 4 2 -16 degrees QTcB Int : 445 ms Poor data quality, interpretation may be adversely affected Sinus tachycardia Otherwise normal ECG No previous ECGs available Confirmed by Xavier Gardner ([id number] on 06/09/2025 9:43:00 AM Referred By: REFERRED SELF Confirmed By: Xavier Gardner
== END 2025-06-06 17:03 | disposition home or self-care (01) | DRG 309 ==
LOC: ED 14:01 → 4W 19:45 → SUATTDRO 19:45 → 4W 22:25